=== PATIENT | female | born 1995 | race Caucasian/White ===

== ENCOUNTER 2017-06-29 20:48 | Emergency (ER) | payer MEDICAID ==
[2017-06-29 21:11] VITALS: BP 133/67
--- NOTE | 2017-06-29 21:33 | EDM.PDOC ---
ED HPI GENERAL MEDICAL PROBLEM - General Chief Complaint: Respiratory Problem Stated Complaint: POSSIBLE BRONCITIS Time Seen by Provider: 06/29/17 20:57 Source of Information: Reports: Patient History Limitations: Reports: No Limitations - History of Present Illness INITIAL COMMENTS - FREE TEXT/NARRATIVE: cough; this is a 21 year old female presents to ER with SO and toddler, reports has been sick for 2 days. Has a burning cough, intermittent chills. denies any fever,nausea, vomiting, diarrhea, or . chronic; asthma, uses a albuterol MDI as needed for wheezing/cough Onset: Gradual Onset Date: 06/27/17 Duration: Day(s): (two) Location: Reports: Generalized Quality: Reports: Burning (cough) Severity: Moderate Improves with: Reports: Medication (albuterol inhaler helps) Worsens with: Reports: None Context: Reports: Sick Contact (child is also sick with runny nose and cough) Associated Symptoms: Reports: Cough, Fever/Chills Treatments ANIMAL NURSE: Reports: Breathing Treatments - Related Data Allergies Allergy/AdvReac Type Severity Reaction Status Date / Time No Known Allergies Allergy Verified 06/29/17 21:08 Home Meds: Home Meds Thinks It Is Albuterol 2 puff INH BID 06/29/17 [History] Past Medical History - Past Health History Medical/Surgical History: Denies Medical/Surgical History Respiratory History: Reports: Asthma Psychiatric History: Reports: Suicidal Ideation Social & Family History - Family History Family Medical History: Noncontributory - Tobacco Use Smoking Status *Q: Current Every Day Smoker Years of Tobacco use: 7 Packs/Tins Daily: 1 - Caffeine Use Caffeine Use: Reports: Coffee, Energy Drinks - Recreational Drug Use Recreational Drug Use: No Drug Use in Last 12 Months: Yes Recreational Drug Type: Reports: Methamphetamine Recreational Drug Use Frequency: Monthly - Living Situation & Occupation Living situation: Reports: Single Occupation: Unemployed ED ROS GENERAL - Review of Systems Review Of Systems: See Below Constitutional: Reports: Chills, Fatigue (from coughing all the time) HEENT: Reports: Throat Pain Respiratory: Reports: Pleuritic Chest Pain, Cough Cardiovascular: Reports: No Symptoms Endocrine: Reports: No Symptoms GI/Abdominal: Reports: No Symptoms : Reports: No Symptoms Musculoskeletal: Reports: No Symptoms Skin: Reports: No Symptoms Neurological: Reports: No Symptoms Psychiatric: Reports: No Symptoms Hematologic/Lymphatic: Reports: No Symptoms Immunologic: Reports: No Symptoms ED EXAM, GENERAL - Physical Exam Exam: See Below Exam Limited By: No Limitations General Appearance: Alert, WD/WN, No Apparent Distress Ears: Normal External Exam, Normal Canal, Hearing Grossly Normal, Normal TMs Ear Exam: Bilateral Ear: Tenderness, TM Dull, TM Bulging Nose: Normal Inspection, Normal Mucosa, No Blood Throat/Mouth: Normal Lips, Normal Teeth, Normal Gums, Normal Voice, No Airway Compromise, Inflammation (tonsils are red and edematous. no exudate is note, uvula midline without deviation) Neck: Normal Inspection, Supple, Non-Tender, Full Range of Motion Respiratory/Chest: No Respiratory Distress, Lungs Clear, No Accessory Muscle Use , Chest Non-Tender, Other (rough sounding cough. lungs otherwise are clear. no wheezing, rhonchi or crackles.) Cardiovascular: Regular Rate, Rhythm, No Murmur GI/Abdominal: Normal Bowel Sounds, Soft, Non-Tender, No Mass (Female) Exam: Deferred Rectal (Female) Exam: Deferred Back Exam: Normal Inspection Extremities: Normal Inspection, Normal Range of Motion Neurological: Alert, Oriented, Normal Cognition, Normal Gait, No Motor/Sensory Deficits Psychiatric: Normal Affect, Normal Mood Skin Exam: Warm, Dry, Intact, Normal Color, No Rash Lymphatic: No Adenopathy Course - Vital Signs Last Recorded V/S: Last Vital Signs Temp 36.6 C 06/29/17 21:05 Pulse 96 06/29/17 21:05 Resp 16 06/29/17 21:05 BP 133/67 06/29/17 21:05 Pulse Ox 98 06/29/17 21:05 - Orders/Labs/Meds Orders: Active Orders 24 hr Category Date Time Status CULTURE STREP A CONFIRMATION [RM] Stat Lab 06/29/17 21:27 Results STREP SCRN A RAPID W CULT CONF [RM] Stat Lab 06/29/17 21:27 Results Labs: rapid strep pending. test is negative, will await culture Departure - Departure Time of Disposition: 22:00 Disposition: Home, Self-Care 01 Condition: Good Clinical Impression: Viral syndrome - Discharge Information Referrals: PCP,None [Primary Care Provider] - Forms: ED Department Discharge Care Plan Goals: Viral Syndrome -rapid strep negative, Throat culture pending -medications order; Prednisone 10mg as directed, Robitussin AC 10ml every 4 to 6 hours as needed for painful cough #120ml Advise -rest -push fluids -take medications as directed -follow up with Primary Care for recheck Return to ER or Urgent Care if not improved or symptoms worsen. - Problem List & Annotations (1) Viral syndrome SNOMED Code(s): 43995218 Code(s): B34.9 - VIRAL INFECTION, UNSPECIFIED Status: Acute Priority: Medium Current Visit: Yes - Problem List Review Problem List Initiated/Reviewed/Updated: Yes - My Orders Last 24 Hours: My Active Orders 06/29/17 21:27 CULTURE STREP A CONFIRMATION [] Stat STREP SCRN A RAPID W CULT CONF [] Stat - Assessment/Plan Last 24 Hours: My Active Orders 06/29/17 21:27 CULTURE STREP A CONFIRMATION [] Stat STREP SCRN A RAPID W CULT CONF [] Stat Plan: Viral Syndrome -rapid strep negative, Throat culture pending -medications order; Prednisone 10mg as directed, Robitussin AC 10ml every 4 to 6 hours as needed for painful cough #120ml Advise -rest -push fluids -take medications as directed -follow up with Primary Care for recheck Return to ER or Urgent Care if not improved or symptoms worsen.
== END 2017-06-29 22:05 | disposition home or self-care (01) ==
LOC: JP.ED 20:48
DX: B34.9 Viral infection, unspecified (principal); J45.909 Unspecified asthma, uncomplicated; F17.210 Nicotine dependence, cigarettes, uncomplicated
CPT/HCPCS: 87081; 87430; 99285

== ENCOUNTER 2017-07-01 21:14 | Emergency (ER) | payer MEDICAID ==
[2017-07-01 21:53] VITALS: BP 140/84
--- NOTE | 2017-07-01 22:19 | EDM.PDOC ---
ED HPI GENERAL MEDICAL PROBLEM - General Chief Complaint: General Stated Complaint: COLD Time Seen by Provider: 07/01/17 21:50 Source of Information: Reports: Patient, Family History Limitations: Reports: No Limitations - History of Present Illness INITIAL COMMENTS - FREE TEXT/NARRATIVE: 21-year-old female with worsening cough over the past 2 days despite conservative treatment. Low-grade fevers and a sore throat from coughing. Her boyfriend got started on Zithromax this morning for the same symptoms. She's also used up her Robitussin-AC. She does have a very persistent deep sounding cough but no shortness of breath. Severity: Moderate Associated Symptoms: Reports: Cough, Fever/Chills, Malaise, Weakness - Related Data Allergies Allergy/AdvReac Type Severity Reaction Status Date / Time No Known Allergies Allergy Verified 06/29/17 21:08 Home Meds: Home Meds Thinks It Is Albuterol 2 puff INH BID 06/29/17 [History] Codeine Phosphate/Guaifenesin [Guaifen-Codeine 100-10 mg/5 ml] 10 ml PO Q4H PRN 07/01/17 [History] Prednisone [IJD: Prednisone] 10 mg PO DAILY 07/01/17 [History] Past Medical History - Past Health History Medical/Surgical History: Denies Medical/Surgical History Respiratory History: Reports: Asthma Psychiatric History: Reports: Suicidal Ideation Social & Family History - Family History Family Medical History: Noncontributory - Tobacco Use Smoking Status *Q: Current Every Day Smoker Years of Tobacco use: 7 Packs/Tins Daily: 1 - Caffeine Use Caffeine Use: Reports: None - Recreational Drug Use Recreational Drug Use: No Drug Use in Last 12 Months: Yes Recreational Drug Type: Reports: Methamphetamine Recreational Drug Use Frequency: Monthly - Living Situation & Occupation Living situation: Reports: Single Occupation: Unemployed ED ROS GENERAL - Review of Systems Review Of Systems: See Below Constitutional: Reports: Fever, Chills, Malaise HEENT: Reports: Throat Pain Respiratory: Reports: Cough. Denies: Shortness of Breath, Sputum Cardiovascular: Reports: Chest Pain (From the coughing) GI/Abdominal: Reports: Nausea, Vomiting (From coughing) Skin: Reports: No Symptoms Neurological: Denies: Headache ED EXAM, GENERAL - Physical Exam Exam: See Below Exam Limited By: No Limitations General Appearance: Alert, No Apparent Distress Throat/Mouth: Normal Inspection Respiratory/Chest: No Respiratory Distress, Wheezing (A few scattered expiratory wheezes are heard) Neurological: Alert, Oriented Skin Exam: Warm, Dry, No Rash Course - Vital Signs Last Recorded V/S: Last Vital Signs Temp 97.5 F 07/01/17 21:51 Pulse 90 07/01/17 21:51 Resp 13 07/01/17 21:51 BP 140/84 07/01/17 21:51 Pulse Ox 96 07/01/17 21:51 - Re-Assessments/Exams Free Text/Narrative Re-Assessment/Exam: 07/01/17 22:18 Patient will be started on Zithromax to cover atypicals, encouraged to continue her prednisone and given a refill on the Robitussin-AC. She can recheck again in 2-3 days if not improving satisfactorily. Departure - Departure Time of Disposition: 22:25 Disposition: Home, Self-Care 01 Condition: Good Clinical Impression: Bronchitis - Discharge Information Instructions: Acute Bronchitis, [id number] Referrals: PCP,None [Primary Care Provider] - Forms: ED Department Discharge Care Plan Goals: Continue current medications and take Zithromax as prescribed. Increase activity as tolerated and return if worsening or concerns.
== END 2017-07-01 22:25 | disposition home or self-care (01) ==
LOC: JP.ED 21:14
DX: J40 Bronchitis, not specified as acute or chronic (principal); F17.210 Nicotine dependence, cigarettes, uncomplicated; Z79.899 Other long term (current) drug therapy
CPT/HCPCS: 99283

== ENCOUNTER 2017-07-09 22:30 | Emergency (ER) | payer MEDICAID ==
[2017-07-09 22:53] VITALS: BP 140/80
[2017-07-09] MEDS ORDERED: Alum Hydrox/Mag Hydrox/Simeth 15 ML, Lidocaine 2% 15 ML PO ONE ×2 (23:07)
--- NOTE | 2017-07-09 23:51 | EDM.PDOC ---
ED HPI GENERAL MEDICAL PROBLEM - General Chief Complaint: Chest Pain Stated Complaint: CHEST PAIN Time Seen by Provider: 07/09/17 22:49 Source of Information: Reports: Patient, Family (Partner SO) History Limitations: Reports: No Limitations - History of Present Illness INITIAL COMMENTS - FREE TEXT/NARRATIVE: Chest pain 1 hour: This is a 21-year-old female presents emergency room states having chest pain for the past 1 hour,it is a constant pressure type pain burning. Report eating a whole pizza 4 hours ago. She is currently finished her Zithromax and use of inhaler, prednisone and Robitussin-AC for bronchitis. Still with cough. Also requesting test as she has concerns of . Last menstrual cycle a 06/07/17 , 10 para 3 last 2 years ago, she is not taking control at this time. Onset: Sudden Duration: Hour(s):, Constant Location: Reports: Chest Quality: Reports: Ache, Burning, Sharp Improves with: Reports: None Worsens with: Reports: None Context: Reports: Other ( large pizza 4 hours ago) Associated Symptoms: Reports: Chest Pain, Cough chest/ chest wall pain Pain Score (Numeric/FACES): 7 - Related Data Allergies Allergy/AdvReac Type Severity Reaction Status Date / Time No Known Allergies Allergy Verified 07/09/17 22:55 Home Meds: Home Meds Thinks It Is Albuterol 2 puff INH BID 06/29/17 [History] Codeine Phosphate/Guaifenesin [Guaifen-Codeine 100-10 mg/5 ml] 10 ml PO Q4H PRN 07/01/17 [History] Prednisone [IJD: Prednisone] 10 mg PO DAILY 07/01/17 [History] Past Medical History - Past Health History Medical/Surgical History: Denies Medical/Surgical History Respiratory History: Reports: Asthma Psychiatric History: Reports: Suicidal Ideation Social & Family History - Family History Family Medical History: Noncontributory - Tobacco Use Smoking Status *Q: Current Every Day Smoker Years of Tobacco use: 7 Packs/Tins Daily: 1 - Caffeine Use Caffeine Use: Reports: None - Recreational Drug Use Recreational Drug Use: No Drug Use in Last 12 Months: Yes Recreational Drug Type: Reports: Methamphetamine Recreational Drug Use Frequency: Monthly - Living Situation & Occupation Living situation: Reports: Single Occupation: Unemployed ED ROS GENERAL - Review of Systems Review Of Systems: See Below Constitutional: Reports: Malaise HEENT: Reports: No Symptoms Respiratory: Reports: Pleuritic Chest Pain, Cough Cardiovascular: Reports: No Symptoms Endocrine: Reports: No Symptoms GI/Abdominal: Reports: Abdominal Pain, Nausea (Heartburn) : Reports: No Symptoms, Other (Last menses 06/07/17) Musculoskeletal: Reports: No Symptoms Skin: Reports: No Symptoms Neurological: Reports: No Symptoms Psychiatric: Reports: No Symptoms Hematologic/Lymphatic: Reports: No Symptoms Immunologic: Reports: No Symptoms ED EXAM, GENERAL - Physical Exam Exam: See Below Exam Limited By: Other (Ms. Hollis is noted to be playing on her cell phone during the entire ER visit.) General Appearance: Alert, WD/WN, No Apparent Distress Eye Exam: Bilateral Eye: EOMI, Normal Inspection, PERRL Ears: Normal External Exam, Normal Canal, Hearing Grossly Normal, Normal TMs Ear Exam: Bilateral Ear: Auricle Normal, Canal Normal, TM normal Nose: Normal Inspection, Normal Mucosa, No Blood Throat/Mouth: Normal Inspection, Normal Lips, Normal Teeth, Normal Gums, Normal Oropharynx, Normal Voice, No Airway Compromise Head: Atraumatic, Normocephalic Neck: Normal Inspection, Supple, Non-Tender, Full Range of Motion Respiratory/Chest: No Respiratory Distress, No Accessory Muscle Use, Crackles, Wheezing (With cough), Other (Cough present, nonproductive) Cardiovascular: Regular Rate, Rhythm, No Edema, No Murmur Peripheral Pulses: 2+: Radial (L), Radial (R) GI/Abdominal: Normal Bowel Sounds, Soft, Non-Tender, No Mass, Pelvis Stable (Female) Exam: Deferred Rectal (Female) Exam: Deferred Back Exam: Normal Inspection, Full Range of Motion, NT Extremities: Normal Inspection, Normal Range of Motion, Non-Tender, Normal Capillary Refill, No Pedal Edema Neurological: Alert Psychiatric: Normal Affect Skin Exam: Warm, Dry, Intact, Normal Color, No Rash Lymphatic: No Adenopathy Course - Vital Signs Last Recorded V/S: Last Vital Signs Temp 37.1 C 07/09/17 22:54 Pulse 110 H 07/09/17 22:54 Resp 16 07/09/17 22:54 BP 140/80 07/09/17 22:54 Pulse Ox 99 07/09/17 22:54 - Orders/Labs/Meds Labs: Laboratory Tests 07/09/17 07/09/17 07/09/17 Range/Units 22:59 22:59 22:59 WBC 5.7 (4.5-11.0) K/uL RBC 4.59 (3.30-5.50) M/uL Hgb 11.5 L (12.0-15.0) g/dL Hct 35.1 L (36.0-48.0) % MCV 77 L (80-98) fL MCH 25 L (27-31) pg MCHC 33 (32-36) % Plt Count 244 (150-400) K/uL Neut % (Auto) 60 (36-66) % Lymph % (Auto) 23 L (24-44) % [place] % (Auto) 14 H (2-6) % Eos % (Auto) 2 (2-4) % Baso % (Auto) 1 (0-1) % Sodium 141 (140-148) mmol/L Potassium 3.6 (3.6-5.2) mmol/L Chloride 107 (100-108) mmol/L Carbon Dioxide 25 (21-32) mmol/L Anion Gap 9.2 (5.0-14.0) mmol/L BUN 13 (7-18) mg/dL Creatinine 0.7 (0.6-1.0) mg/dL Est Cr Clr Drug Dosing 113.03 mL/min Estimated GFR (MDRD) > 60 (>60) Glucose 97 (74-106) mg/dL Calcium 8.2 L (8.5-10.1) mg/dL Total Bilirubin 0.8 (0.2-1.0) mg/dL AST 16 (15-37) U/L ALT 17 (12-78) U/L Alkaline Phosphatase 68 (46-116) U/L Total Protein 6.5 (6.4-8.2) g/dL Albumin 3.1 L (3.4-5.0) g/dL Globulin 3.4 (2.3-3.5) g/dL Albumin/Globulin Ratio 0.9 L (1.2-2.2) HCG, Quant 0 (0-6) mIU/mL Meds: Medications Discontinued Medications Generic Name Dose Route Start Last Admin Trade Name Freq PRN Reason Stop Dose Admin Al Hydroxide/Mg Hydroxide 15 0 ml 09/26/17 23:07 07/09/17 23:10 ml/ Lidocaine HCl 15 ml PO 07/09/17 23:08 15 ml ONETIME ONE Administration - Re-Assessments/Exams Free Text/Narrative Re-Assessment/Exam: 07/09/17 Labs CBC CMP are normal, no elevation in white count is noted Medication: GI cocktail, patient notes relief of symptoms with GI cocktail Quantitative hCG is negative Departure - Departure Time of Disposition: 00:24 Disposition: Home, Self-Care 01 Clinical Impression: Bronchitis, Heart burn, test negative - Discharge Information Instructions: Heartburn, [id number] Referrals: PCP,None [Primary Care Provider] - Forms: ED Department Discharge Care Plan Goals: Heart Burn -start Prilosec 20 mg daily -follow up with Primary Care for recheck in 4 weeks Bronchitis -oral steroids as directed -continue with Robitussin AC as directed -Tylenol or Motrin for pain or fever test; negative -follow up with Primary Care in 4 weeks, if does not have menses -consider Control if not trying to conceive. Return to Clinic or ER for increased cough, fever, chills, nausea, vomiting, rash or not improved - Problem List & Annotations (1) Bronchitis SNOMED Code(s): 61834165 Code(s): J40 - BRONCHITIS, NOT SPECIFIED ACUTE OR CHRONIC Status: Acute Priority: Medium (2) Heart burn SNOMED Code(s): 53802428 Code(s): R12 - HEARTBURN Status: Acute Priority: Medium (3) test negative Priority: Medium - Problem List Review Problem List Initiated/Reviewed/Updated: Yes - Assessment/Plan Plan: Heart Burn -start Prilosec 20 mg daily -follow up with Primary Care for recheck in 4 weeks Bronchitis -oral steroids as directed -continue with Robitussin AC as directed -Tylenol or Motrin for pain or fever test; negative -follow up with Primary Care in 4 weeks, if does not have menses -consider Control if not trying to conceive. Return to Clinic or ER for increased cough, fever, chills, nausea, vomiting, rash or not improved
== END 2017-07-10 00:07 | disposition home or self-care (01) ==
LOC: JP.ED 22:30
DX: J40 Bronchitis, not specified as acute or chronic (principal); R12 Heartburn; F17.210 Nicotine dependence, cigarettes, uncomplicated; Z79.899 Other long term (current) drug therapy; Z32.02 Encounter for pregnancy test, result negative
CPT/HCPCS: 36415; 80053; 84702; 85025; 99284; A9270; 99283

== ENCOUNTER 2017-07-24 17:16 | Emergency (ER) | payer MEDICAID ==
[2017-07-24 17:51] VITALS: BP 131/72
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
== END 2017-07-24 19:10 | disposition home or self-care (01) ==
LOC: JP.ED 17:16
DX: F43.20 Adjustment disorder, unspecified (principal); J45.909 Unspecified asthma, uncomplicated; F17.210 Nicotine dependence, cigarettes, uncomplicated; Z79.899 Other long term (current) drug therapy
CPT/HCPCS: 99284; 99285

== ENCOUNTER 2017-08-06 19:14 | Emergency (ER) | payer MEDICAID | END 2017-08-06 19:31 | disposition left against medical advice (07) | LOC: JP.ED 19:14 | DX: Z53.21 Procedure and treatment not carried out due to patient leaving prior to being seen by health care provider (principal) ==

== ENCOUNTER 2017-08-27 22:34 | Emergency (ER) | payer MEDICAID ==
[2017-08-27 22:45] VITALS: BP 111/73
[2017-08-27] MEDS ORDERED: Ketorolac 60 MG/2 ML SDV IM ONE (23:02)
[2017-08-27] MEDS ORDERED: Cyclobenzaprine 10 MG Tab PO ONE (23:02)
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
[2017-08-28] MEDS ORDERED: Acetaminophen/oxyCODONE 325-5 MG Tab PO ONE
--- NOTE | 2017-08-28 09:22 | CR ---
No fracture or dislocation.
--- NOTE | 2017-08-28 09:23 | CR ---
5 lumbar type vertebral bodies. No fracture. Disc heights are maintained. Metallic density which appe ars rounded at the L1 level. Correlate for foreign body or postsurgical change.
== END 2017-08-28 00:27 | disposition home or self-care (01) ==
LOC: JP.ED 22:34
DX: S30.0XXA Contusion of lower back and pelvis, initial encounter (principal); S70.12XA Contusion of left thigh, initial encounter; J45.909 Unspecified asthma, uncomplicated; F17.210 Nicotine dependence, cigarettes, uncomplicated; Z91.040 Latex allergy status; W19.XXXA Unspecified fall, initial encounter; Y92.89 Other specified places as the place of occurrence of the external cause
CPT/HCPCS: 72110; 73552; 96372; 99284; A9270; J1885; 99283

== ENCOUNTER 2017-09-07 23:11 | Emergency (ER) | payer MEDICAID ==
[2017-09-07 23:35] VITALS: BP 130/95
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
== END 2017-09-08 00:07 | disposition home or self-care (01) ==
LOC: JP.ED 23:11
DX: Z63.8 Other specified problems related to primary support group (principal); Z91.040 Latex allergy status; F17.210 Nicotine dependence, cigarettes, uncomplicated
CPT/HCPCS: 99284; 99285

== ENCOUNTER 2017-09-30 05:27 | Emergency (ER) | payer MEDICAID ==
[2017-09-30 05:41] VITALS: BP 134/85
--- NOTE | 2017-09-30 06:01 | EDM.PDOC ---
ED HPI GENERAL MEDICAL PROBLEM - General Chief Complaint: Gastrointestinal Problem Stated Complaint: COUGH Time Seen by Provider: 09/30/17 05:49 Source of Information: Reports: Patient, RN Notes Reviewed History Limitations: Reports: No Limitations - History of Present Illness INITIAL COMMENTS - FREE TEXT/NARRATIVE: 21-year-old female presents emergency department day complaint of cough posttussive emesis difficulty breathing, she states been ill for about 10 days has had fevers is increasingly getting more short of breath, was evaluated in the clinic early on felt to have viral syndrome was treated with cough suppressant denies pain Pain Score (Numeric/FACES): 0 - Related Data Allergies Allergy/AdvReac Type Severity Reaction Status Date / Time Latex, Natural Rubber Allergy Swelling Verified 09/30/17 05:51 Home Meds: Home Meds Albuterol Sulfate [Ventolin Hfa] 1 - 2 puff INH ASDIRECTED PRN 08/27/17 [History ] Past Medical History HEENT History: Reports: Impaired Vision Respiratory History: Reports: Asthma Genitourinary History: Reports: Pyelonephritis, UTI, 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: , 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 Neurological History: Reports: Concussion Psychiatric History: Reports: Bipolar, Depression, Suicide Attempt, Suicidal Ideation Social & Family History - Family History Family Medical History: Noncontributory - Tobacco Use Smoking Status *Q: Current Every Day Smoker Years of Tobacco use: 6 Packs/Tins Daily: 0.5 Used Tobacco, but Quit: No Second Hand Smoke Exposure: Yes - Caffeine Use Caffeine Use: Reports: Coffee, Energy Drinks - Recreational Drug Use Recreational Drug Use: No Drug Use in Last 12 Months: Yes Recreational Drug Type: Reports: Methamphetamine Recreational Drug Use Frequency: Monthly - Living Situation & Occupation Living situation: Reports: Single Occupation: Unemployed ED ROS GENERAL - Review of Systems Review Of Systems: See Below Constitutional: Reports: Fever, Chills HEENT: Reports: No Symptoms Respiratory: Reports: Shortness of Breath, Wheezing, Cough. Denies: Sputum Cardiovascular: Reports: No Symptoms GI/Abdominal: Reports: No Symptoms : Reports: No Symptoms Musculoskeletal: Reports: No Symptoms Skin: Reports: No Symptoms ED EXAM, GENERAL - Physical Exam Exam: See Below Free Text/Narrative:: General: Female, not in any distress, alert and oriented x3 HEENT: head is atraumatic normocephalic, eyes pupils equal round reactive to light, sclera clear no conjunctivitis appreciated. Ears tympanic membranes clear and peck landmarks and light reflex are present bilaterally canals are clear. Nose no septal deviation, nares are clear, no blood present. Mouth mucosa is moist and pink no erythema or exudate noted in soft palate, tongue is midline uvula is midline, dentition is intact. Neck: Supple no thyromegaly no tracheal deviation. Nodes: Cervical nodes subclavicular nodes nontender no palpable lymphadenopathy noted. Lungs: Expiratory wheeze mid to lower lung sierra bilaterally CV: Regular rate and rhythm S1 and S2 appreciated no murmurs rubs or gallops noted. Abdomen: Soft, nontender, no palpable masses or organomegaly appreciated, no distention no guarding bowel sounds are present, [scars ]. Neuro: Cranial nerves II through XII grossly intact Skin: Warm and dry, intact Extremities: No lower extremity edema appreciated, Course - Vital Signs Last Recorded V/S: Last Vital Signs Temp 99.3 F 09/30/17 05:43 Pulse 105 H 09/30/17 05:43 Resp 18 09/30/17 05:43 BP 134/85 09/30/17 05:43 Pulse Ox 92 L 09/30/17 05:43 Departure - Departure Time of Disposition: 06:00 Disposition: Home, Self-Care 01 Condition: Good Clinical Impression: Bronchitis, Mild intermittent asthma with acute exacerbation - Discharge Information Referrals: PCP,None [Primary Care Provider] - Additional Instructions: Take full course of antibiotics, take full course of prednisone, use albuterol as needed help suppress the cough and help breathing, Please followup with your primary care provider in 3-5 days if not better, please call return to the emergency department with worsening of symptoms. - Assessment/Plan Plan: Assessment Acuity = acute Site and laterality = asthma exacerbation with bronchitis Etiology = probable bacterial cause Manifestations = cough, wheezing Location of injury = Home Lab values = none Plan Will treat empirically with azithromycin 5 day course, prednisone 20 mg once a day 5 days and an albuterol inhaler follow-up with primary care in 3-5 days for reevaluation, she was in agreement about plan all of her questions were answered This note was dictated using [employer] voice recognition software please call with any questions on syntax or fredis.
== END 2017-09-30 06:07 | disposition home or self-care (01) ==
LOC: JP.ED 05:27
DX: J45.21 Mild intermittent asthma with (acute) exacerbation (principal); J40 Bronchitis, not specified as acute or chronic; F17.210 Nicotine dependence, cigarettes, uncomplicated; F31.9 Bipolar disorder, unspecified; Z91.040 Latex allergy status
CPT/HCPCS: 99283

== ENCOUNTER 2017-11-10 11:01 | Emergency (ER) | payer MEDICAID ==
[2017-11-10] MEDS ORDERED: Albuterol/Ipratropium 3.0-0.5 MG/3 ML Neb Soln NEB ONE (11:33)
--- NOTE | 2017-11-10 11:39 | EDM.PDOC ---
ED HPI GENERAL MEDICAL PROBLEM - General Chief Complaint: Respiratory Problem Stated Complaint: COUGHING; DIFFICULTY BREATHING Time Seen by Provider: 11/10/17 11:25 Source of Information: Reports: Patient, RN History Limitations: Reports: No Limitations - History of Present Illness INITIAL COMMENTS - FREE TEXT/NARRATIVE: 22 yo smoking female with a pHx of mild asthma has recently had SOB, cough, and runny nose. Thinks she has had a recent fever. Says she can't find her inhaler. Has no family doctor. Cough is occasionally productive. Did not have a flu shot this winter. Onset: Gradual Onset Date: 11/07/17 Duration: Day(s): Location: Reports: Face (nose), Chest Quality: Reports: Other (no pain) Severity: Mild Improves with: Reports: Rest Worsens with: Reports: Movement (exertion) Context: Reports: Other (Respiratory infection/smoker/hx of asthma) Associated Symptoms: Reports: Cough, Fever/Chills (?), Shortness of Breath (mild ) Treatments NEGATIVE TURNER: Reports: Other (see below) (smoking abstinence x 3 d) - Related Data Allergies Allergy/AdvReac Type Severity Reaction Status Date / Time Latex, Natural Rubber Allergy Swelling Verified 11/10/17 11:14 Home Meds: Home Meds Albuterol Sulfate [Ventolin Hfa] 1 - 2 puff INH ASDIRECTED PRN 08/27/17 [History ] Past Medical History - Past Health History Medical/Surgical History: Denies Medical/Surgical History HEENT History: Reports: Impaired Vision Respiratory History: Reports: Asthma, Bronchitis, Recurrent Genitourinary History: Reports: Pyelonephritis, UTI, 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: , 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 Neurological History: Reports: Concussion Psychiatric History: Reports: Bipolar, Depression, Psych Hospitalization(s), Suicide Attempt, Suicidal Ideation Social & Family History - Family History Family Medical History: Noncontributory - Tobacco Use Smoking Status *Q: Current Every Day Smoker Years of Tobacco use: 6 Packs/Tins Daily: 0.5 Used Tobacco, but Quit: No Second Hand Smoke Exposure: Yes - Caffeine Use Caffeine Use: Reports: None - Recreational Drug Use Recreational Drug Use: No Drug Use in Last 12 Months: Yes Recreational Drug Type: Reports: Methamphetamine Recreational Drug Use Frequency: Monthly - Living Situation & Occupation Living situation: Reports: Single Occupation: Unemployed ED ROS GENERAL - Review of Systems Review Of Systems: See Below Constitutional: Reports: Fever (? not sure) HEENT: Reports: Rhinitis. Denies: Ear Discharge, Ear Pain, Throat Pain Respiratory: Reports: Shortness of Breath, Cough, Sputum. Denies: Hemoptysis Cardiovascular: Reports: No Symptoms GI/Abdominal: Reports: No Symptoms : Reports: No Symptoms Musculoskeletal: Reports: No Symptoms Skin: Reports: No Symptoms Neurological: Reports: No Symptoms ED EXAM, GENERAL - Physical Exam Exam: See Below Exam Limited By: No Limitations General Appearance: Alert, WD/WN, No Apparent Distress, Obese Eye Exam: Bilateral Eye: Normal Inspection Ears: Normal External Exam, Normal Canal, Hearing Grossly Normal, Normal TMs Ear Exam: Bilateral Ear: Auricle Normal, Canal Normal, TM normal Nose: Nasal Drainage (cloudy, mostly white) Throat/Mouth: Normal Inspection, Normal Lips, Normal Oropharynx, Normal Voice, No Airway Compromise Head: Atraumatic, Normocephalic Neck: Normal Inspection, Supple Respiratory/Chest: No Respiratory Distress, Chest Non-Tender, Crackles ( diffusely) Cardiovascular: Regular Rate, Rhythm Back Exam: Normal Inspection. No: CVA Tenderness (R), CVA Tenderness (L) Extremities: Normal Inspection, Normal Range of Motion, Non-Tender Neurological: Alert, Oriented, CN II-XII Intact, Normal Cognition, No Motor/ Sensory Deficits Psychiatric: Normal Affect, Normal Mood Skin Exam: Warm, Dry, Intact, Normal Color, No Rash, Wound/Incision Course - Vital Signs Text/Narrative:: Modest improvement with neb tx, still has some coarse breath sounds bilat. Last Recorded V/S: Last Vital Signs Temp 37.3 C 11/10/17 11:20 Pulse 118 H 11/10/17 12:08 Resp 20 11/10/17 12:08 BP 137/80 11/10/17 12:08 Pulse Ox 93 L 11/10/17 12:08 - Orders/Labs/Meds Orders: Active Orders 24 hr Category Date Time Status RT Aerosol Therapy [RC] ASDIRECTED Care 11/10/17 11:33 Active Labs: Laboratory Tests 11/10/17 Range/Units 12:20 WBC 7.8 (4.5-11.0) K/uL RBC 5.06 (3.30-5.50) M/uL Hgb 12.9 (12.0-15.0) g/dL Hct 39.5 (36.0-48.0) % MCV 78 L (80-98) fL MCH 26 L (27-31) pg MCHC 33 (32-36) % Plt Count 160 (150-400) K/uL Meds: Medications Discontinued Medications Generic Name Dose Route Start Last Admin Trade Name Freq PRN Reason Stop Dose Admin Albuterol/Ipratropium 3 ml 11/10/17 11:33 11/10/17 11:48 Duoneb 3.0-0.5 Mg/3 Ml NEB 11/10/17 11:34 3 ml ONETIME ONE Administration Departure - Departure Time of Disposition: 12:39 Disposition: Home, Self-Care 01 Condition: Fair Clinical Impression: Viral respiratory illness, Bronchospasm, Tobacco abuse disorder - Discharge Information Referrals: PCP,None [Primary Care Provider] - Forms: ED Department Discharge - My Orders Last 24 Hours: My Active Orders 11/10/17 11:33 RT Aerosol Therapy [RC] ASDIRECTED - Assessment/Plan Last 24 Hours: My Active Orders 11/10/17 11:33 RT Aerosol Therapy [RC] ASDIRECTED
[2017-11-10 12:09] VITALS: BP 137/80
== END 2017-11-10 12:53 | disposition home or self-care (01) ==
LOC: JP.ED 11:01
DX: J98.01 Acute bronchospasm (principal); B34.9 Viral infection, unspecified; F17.210 Nicotine dependence, cigarettes, uncomplicated; Z91.040 Latex allergy status
CPT/HCPCS: 36415; 85027; 87804; 94640; 99284; J7620

== ENCOUNTER 2017-11-11 22:07 | Observation (INO) | payer MEDICAID ==
[2017-11-11] MEDS ORDERED: Albuterol/Ipratropium 3.0-0.5 MG/3 ML Neb Soln NEB ONE (22:22)
[2017-11-11] MEDS ORDERED: Sodium Chloride 0.9% 10 ML Syringe FLUSH PRN (22:22)
--- NOTE | 2017-11-11 22:47 | EDM.PDOC ---
ED HPI GENERAL MEDICAL PROBLEM - General Chief Complaint: Respiratory Problem Stated Complaint: ILLNESS Time Seen by Provider: 11/11/17 22:15 Source of Information: Reports: Patient, EMS History Limitations: Reports: No Limitations - History of Present Illness INITIAL COMMENTS - FREE TEXT/NARRATIVE: 22-year-old female seen yesterday in the emergency room with a cough and cold, influenza were negative. She became worse today, and despite taking a nebulizer of her son's, she became more short of breath and called EMS. When EMS arrived she had oxygen saturations only in the mid to upper 80s so oxygen supplementation was given. On arrival to the emergency room she was not in respiratory distress but even with 3-4 L of nasal cannula oxygen she was still saturating from 85-90%. Frequent cough. She is also running a fever. Onset: Gradual (Over the past several days) Severity: Moderate Improves with: Reports: Other (Oxygen seems to help) Associated Symptoms: Reports: Cough, Fever/Chills, Shortness of Breath - Related Data Allergies Allergy/AdvReac Type Severity Reaction Status Date / Time Latex, Natural Rubber Allergy Swelling Verified 11/11/17 22:12 Home Meds: Home Meds Albuterol Sulfate [Ventolin Hfa] 1 - 2 puff INH ASDIRECTED PRN 08/27/17 [History ] Albuterol Sulfate [Proair Hfa] 2 puff IH Q4H PRN #1 hfa.aer.ad 11/10/17 [Rx] Codeine/guaiFENesin [Robitussin AC] 5 - 19 ml PO Q4H PRN #1 liquid 11/10/17 [Rx] Past Medical History - Past Health History Medical/Surgical History: Denies Medical/Surgical History HEENT History: Reports: Impaired Vision Respiratory History: Reports: Asthma, Bronchitis, Recurrent Genitourinary History: Reports: Pyelonephritis, UTI, Recurrent 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: , 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 Neurological History: Reports: Concussion Psychiatric History: Reports: Bipolar, Depression, Psych Hospitalization(s), Suicide Attempt, Suicidal Ideation Social & Family History - Family History Family Medical History: Noncontributory - Tobacco Use Smoking Status *Q: Current Every Day Smoker Years of Tobacco use: 6 Packs/Tins Daily: 0.5 Used Tobacco, but Quit: No Second Hand Smoke Exposure: Yes - Caffeine Use Caffeine Use: Reports: None - Recreational Drug Use Recreational Drug Use: No Drug Use in Last 12 Months: Yes Recreational Drug Type: Reports: Methamphetamine Recreational Drug Use Frequency: Monthly - Living Situation & Occupation Living situation: Reports: Single Occupation: Unemployed ED ROS GENERAL - Review of Systems Review Of Systems: See Below Constitutional: Reports: Fever, Chills, Malaise, Weakness HEENT: Denies: Throat Pain Respiratory: Reports: Shortness of Breath, Cough, Sputum Cardiovascular: Denies: Chest Pain GI/Abdominal: Denies: Abdominal Pain, Nausea, Vomiting Musculoskeletal: Reports: No Symptoms Skin: Reports: No Symptoms ED EXAM, GENERAL - Physical Exam Exam: See Below Exam Limited By: No Limitations General Appearance: Alert, Mild Distress Throat/Mouth: Normal Inspection Respiratory/Chest: Respiratory Distress (Mild increased respiratory effort, not tachypneic), Rales (Bilateral basilar rales, worse on the left) Cardiovascular: Regular Rate, Rhythm, Tachycardia Extremities: Normal Inspection Neurological: Alert, Oriented Psychiatric: Depressed Mood, Flat Affect Skin Exam: Warm, Dry Course - Vital Signs Last Recorded V/S: Last Vital Signs Temp 100.0 F 11/12/17 00:31 Pulse 118 H 11/12/17 00:12 Resp 20 11/12/17 00:12 BP 126/69 11/12/17 00:12 Pulse Ox 92 L 11/12/17 00:12 - Orders/Labs/Meds Orders: Active Orders 24 hr Category Date Time Status Patient Status [ADT] Routine ADT 11/11/17 23:21 Active Oxygen Therapy [RC] PRN Care 11/11/17 23:21 Active RT Aerosol Therapy [RC] ASDIRECTED Care 11/11/17 22:22 Active RT Aerosol Therapy [RC] ASDIRECTED Care 11/11/17 23:24 Active Up With Assistance [RC] ASDIRECTED Care 11/11/17 23:21 Active Vital Signs [RC] Q4H Care 11/11/17 23:21 Active Regular Diet [DIET] Diet 11/11/17 Breakfast Active Chest 2V [CR] Routine Exams 11/11/17 22:22 Taken BASIC METABOLIC PANEL,BMP [CHEM] AM Lab 11/12/17 05:11 Ordered CBC W/O DIFF,HEMOGRAM [HEME] AM Lab 11/12/17 05:11 Ordered Acetaminophen [Tylenol] Med 11/11/17 23:21 Active 650 mg PO Q4H PRN Albuterol/Ipratropium [DuoNeb 3.0-0.5 MG/3 ML] Med 11/11/17 23:21 Active 3 ml NEB QID PRN Ondansetron [Zofran] Med 11/11/17 23:21 Active 4 mg IV Q4H PRN Sodium Chloride 0.9% [Normal Saline] 1,000 ml Med 11/11/17 23:30 Active IV ASDIRECTED Sodium Chloride 0.9% [Saline Flush] Med 11/11/17 22:22 Active 10 ml FLUSH ASDIRECTED PRN methylPREDNISolone Sod Succ [Solu-MEDROL] Med 11/12/17 06:00 Active 125 mg IVPUSH Q8HR Saline Lock Insert [OM.PC] Routine Oth 11/11/17 22:22 Ordered Resuscitation Status Routine Resus Stat 11/11/17 23:21 Ordered Medication Orders Acetaminophen (Tylenol) 650 mg PO Q4H PRN PRN Reason: Pain (Mild 1-3)/fever Last Admin: 11/12/17 00:31 Dose: 650 mg Albuterol/Ipratropium (Duoneb 3.0-0.5 Mg/3 Ml) 3 ml NEB QID PRN PRN Reason: Shortness Of Breath/wheezing Sodium Chloride (Normal Saline) 1,000 mls @ 125 mls/hr IV ASDIRECTED MISSAEL Last Admin: 11/12/17 00:32 Dose: 125 mls/hr Methylprednisolone Sodium Succinate (Solu-Medrol) 125 mg IVPUSH Q8HR MISSAEL Ondansetron HCl (Zofran) 4 mg IV Q4H PRN PRN Reason: Nausea/Vomiting Sodium Chloride (Saline Flush) 10 ml FLUSH ASDIRECTED PRN PRN Reason: Keep Vein Open Last Admin: 11/11/17 22:32 Dose: 10 ml Meds: Medications Generic Name Dose Route Start Last Admin Trade Name Freq PRN Reason Stop Dose Admin Acetaminophen 650 mg 11/11/17 23:21 11/12/17 00:31 Tylenol PO 650 mg Q4H PRN Administration Pain (Mild 1-3)/fever Albuterol/Ipratropium 3 ml 11/11/17 23:21 Duoneb 3.0-0.5 Mg/3 Ml NEB QID PRN Shortness Of Breath/wheezing Sodium Chloride 1,000 mls @ 125 mls/hr 11/11/17 23:30 11/12/17 00:32 Normal Saline IV 125 mls/hr ASDIRECTED MISSAEL Administration Methylprednisolone Sodium Succinate 125 mg 11/12/17 06:00 Solu-Medrol IVPUSH Q8HR MISSAEL Ondansetron HCl 4 mg 11/11/17 23:21 Zofran IV Q4H PRN Nausea/Vomiting Sodium Chloride 10 ml 11/11/17 22:22 11/11/17 22:32 Saline Flush FLUSH 10 ml ASDIRECTED PRN Administration Keep Vein Open Discontinued Medications Generic Name Dose Route Start Last Admin Trade Name Freq PRN Reason Stop Dose Admin Albuterol/Ipratropium 3 ml 11/11/17 22:22 11/11/17 22:27 Duoneb 3.0-0.5 Mg/3 Ml NEB 11/11/17 22:23 3 ml ONETIME ONE Administration Azithromycin 1,000 mg 11/11/17 23:02 11/11/17 23:19 Zithromax PO 11/11/17 23:03 1,000 mg ONETIME ONE Administration Ceftriaxone Sodium 1 gm/ 50 mls @ 100 mls/hr 11/11/17 23:02 11/11/17 23:19 Sodium Chloride IV 11/11/17 23:31 100 mls/hr ONETIME ONE Administration Methylprednisolone Sodium Succinate 125 mg 11/11/17 23:02 11/11/17 23:19 Solu-Medrol IVPUSH 11/11/17 23:03 125 mg ONETIME ONE Administration - Re-Assessments/Exams Free Text/Narrative Re-Assessment/Exam: 11/11/17 22:57 Despite the nebulizer her oxygen saturations are still only 88-90% on 4 L of nasal cannula oxygen. A two-view chest x-ray showed a left lower lobe infiltrate. Patient was given IV Rocephin, oral Zithromax and IV Solu-Medrol. Dr. Wallace was asked to see the patient for admission. 11/11/17 23:01 Influenza antigens and lab work were not repeated as they were just done last night. Departure - Departure Time of Disposition: 00:31 Disposition: Admitted As Inpatient 67 Condition: Fair Clinical Impression: Pneumonia Qualifiers: Pneumonia type: due to unspecified organism Laterality: left Lung location: lower lobe of lung Qualified Code(s): J18.1 - Lobar pneumonia, unspecified organism - Discharge Information - My Orders Last 24 Hours: My Active Orders 11/11/17 22:22 RT Aerosol Therapy [RC] ASDIRECTED Chest 2V [CR] Routine Sodium Chloride 0.9% [Saline Flush] 10 ml FLUSH ASDIRECTED PRN Saline Lock Insert [OM.PC] Routine - Assessment/Plan Last 24 Hours: My Active Orders 11/11/17 22:22 RT Aerosol Therapy [RC] ASDIRECTED Chest 2V [CR] Routine Sodium Chloride 0.9% [Saline Flush] 10 ml FLUSH ASDIRECTED PRN Saline Lock Insert [OM.PC] Routine
[2017-11-11] MEDS ORDERED: Azithromycin 250 MG Tab PO ONE (23:02)
[2017-11-11] MEDS ORDERED: cefTRIAXone 1 GM in Sodium Chloride 0.9% 50 ML IV ONE (23:02)
[2017-11-11] MEDS ORDERED: methylPREDNISolone Sodium Succinate 125 MG/2 ML SDV IVPUSH ONE (23:02)
[2017-11-11] MEDS ORDERED: Acetaminophen 325 MG Tab PO PRN (23:21)
[2017-11-11] MEDS ORDERED: Ondansetron 4 MG/2 ML SDV IV PRN (23:21)
[2017-11-12] MEDS: Sodium Chloride 0.9% 1,000 ML IV SCH ×2 (00:32→07:44)
[2017-11-12] MEDS: Albuterol/Ipratropium 3.0-0.5 MG/3 ML Neb Soln NEB PRN ×2 (05:40→07:18)
[2017-11-12] MEDS ORDERED: methylPREDNISolone Sodium Succinate 125 MG/2 ML SDV IVPUSH SCH (06:00)
[2017-11-12] MEDS ORDERED: Benzonatate 100 MG Cap PO PRN (06:17)
--- NOTE | 2017-11-12 08:53 | PCM.DCSUM1 ---
Discharge Summary - Hospital Course Brief History: 22-year-old female with history of tobacco dependence and mild intermittent asthma who presented with persistent and progressive cough shortness of breath. Workup in the emergency room suggested left-sided pneumonia with hypoxic respiratory failure and she was admitted for further management. - Discharge Data Discharge Date: 11/12/17 Discharge Disposition: DC/Tfer to Acute Hospital 02 Condition: Serious - Discharge Diagnosis/Problem(s) (1) Bilateral pneumonia SNOMED Code(s): 770115566 ICD Code: J18.9 - PNEUMONIA, UNSPECIFIED ORGANISM Status: Acute Current Visit: Yes Qualifiers: Pneumonia type: due to unspecified organism Lung location: lower lobe of lung Qualified Code(s): J18.9 - Pneumonia, unspecified organism (2) Acute asthma exacerbation SNOMED Code(s): 828151357 ICD Code: J45.901 - UNSPECIFIED ASTHMA WITH (ACUTE) EXACERBATION Status: Acute Current Visit: Yes Qualifiers: Asthma severity: mild Asthma persistence: intermittent Qualified Code(s) : J45.21 - Mild intermittent asthma with (acute) exacerbation (3) Acute respiratory failure with hypoxia SNOMED Code(s): 52454249 ICD Code: J96.01 - ACUTE RESPIRATORY FAILURE WITH HYPOXIA Status: Acute Current Visit: Yes (4) Tobacco abuse disorder SNOMED Code(s): 865116957 ICD Code: Z72.0 - TOBACCO USE Status: Chronic Current Visit: No - Patient Summary/Data Hospital Course: Constantin presented to the emergency room with one week of progressive cough shortness of breath. It is noted that she was seen in the emergency room the night before admission and had negative influenza testing and a normal white count at that time. Workup in the emergency room revealed hypoxic respiratory failure and initially she was requiring 4-5 L of oxygen to keep her saturations are 90%. Laboratory studies revealed a normal white count and a borderline low potassium. Chest x-ray was suggestive of bilateral pneumonia. She was given IV steroids and started on ceftriaxone and azithromycin and admitted to the hospital for further management. During the first part of the night she was relatively stable and required only 2 L of supplemental oxygen. Respiratory rate was around 20 and blood pressure and heart rate were both stable. Between 6 and 7 in the morning after admission she had sudden increase in her supplemental oxygen requirement. She was increased to 12 L nonrebreather mask. Nebulizer treatment did not provide much benefit. Respiratory rate had increased to the low 30s. Blood pressure and heart rate did both remain stable. I was concerned by the sudden increase in the oxygen requirement and change in her status. I contacted [facility] and spoke with Dr. Sandoval of critical care. After hearing the story he was concerned about acute influenza infection. The patient was given a dose of Tamiflu and IV fluids were stopped. Transfer to a higher level of care was recommended given her declining status to the setting of asthma and tobacco dependence. I believe the benefits of transfer far outweigh the risks at this point. She should be safe for transfer to [place] with the non-rebreather and I don't believe intubation is imminent though if her condition declines any further it certainly could be necessary. - Patient Instructions Diet: NPO Activity: Bedrest Other/Special Instructions: Transfer to [facility] -. -Bilateral pneumonia , severe hypoxic resp failure, tobacco dependence. -Dr Sandoval accepting, direct admit to ICU - Discharge Plan Home Medications: Home Meds Albuterol Sulfate [Ventolin Hfa] 1 - 2 puff INH ASDIRECTED PRN 08/27/17 [History ] Albuterol Sulfate [Proair Hfa] 2 puff IH Q4H PRN #1 hfa.aer.ad 11/10/17 [Rx] Codeine/guaiFENesin [Robitussin AC] 5 - 19 ml PO Q4H PRN #1 liquid 11/10/17 [Rx] Patient Handouts: Community-Acquired Pneumonia, Adult Referrals: PCP,None [Primary Care Provider] - - Discharge Summary/Plan Comment DC Time >30 min.: Yes (60 - transfer to acute Hospital) - Patient Data Vitals - Most Recent: Last Vital Signs Temp 36 C 11/12/17 04:00 Pulse 96 11/12/17 04:00 Resp 20 11/12/17 04:00 BP 111/64 11/12/17 04:00 Pulse Ox 89 L 11/12/17 04:00 Weight - Most Recent: 81.828 kg I&O - Last 24 hours: Intake & Output 11/11/17 11/12/17 11/12/17 22:59 06:59 14:59 Intake Total 757 Balance 757 Lab Results - Last 24 hrs: Laboratory Results - last 24 hr 11/12/17 11/12/17 Range/Units 05:11 05:11 WBC 6.4 (4.5-11.0) K/uL RBC 4.78 (3.30-5.50) M/uL Hgb 12.5 (12.0-15.0) g/dL Hct 37.1 (36.0-48.0) % MCV 78 L (80-98) fL MCH 26 L (27-31) pg MCHC 34 (32-36) % Plt Count 173 (150-400) K/uL Sodium 136 L (140-148) mmol/L Potassium 3.5 L (3.6-5.2) mmol/L Chloride 100 (100-108) mmol/L Carbon Dioxide 24 (21-32) mmol/L Anion Gap 15.5 H (5.0-14.0) mmol/L BUN 5 L D (7-18) mg/dL Creatinine 0.6 (0.6-1.0) mg/dL Est Cr Clr Drug Dosing 130.77 mL/min Estimated GFR (MDRD) > 60 (>60) Glucose 162 H (74-106) mg/dL Calcium 8.4 L (8.5-10.1) mg/dL Med Orders - Current: Current Medications Acetaminophen (Tylenol) 650 mg PO Q4H PRN PRN Reason: Pain (Mild 1-3)/fever Last Admin: 11/12/17 00:31 Dose: 650 mg Albuterol (Proventil Neb Soln) 2.5 mg NEB ONETIME ONE Stop: 11/12/17 09:01 Albuterol/Ipratropium (Duoneb 3.0-0.5 Mg/3 Ml) 3 ml NEB QID PRN PRN Reason: Shortness Of Breath/wheezing Last Admin: 11/12/17 07:18 Dose: 3 ml Benzonatate (Tessalon Perles) 100 mg PO TID PRN PRN Reason: Cough Last Admin: 11/12/17 06:29 Dose: 100 mg Methylprednisolone Sodium Succinate (Solu-Medrol) 125 mg IVPUSH Q8HR MISSAEL Last Admin: 11/12/17 05:20 Dose: 125 mg Ondansetron HCl (Zofran) 4 mg IV Q4H PRN PRN Reason: Nausea/Vomiting Oseltamivir Phosphate (Tamiflu) 75 mg PO ONETIME ONE Stop: 11/12/17 09:01 Sodium Chloride (Saline Flush) 10 ml FLUSH ASDIRECTED PRN PRN Reason: Keep Vein Open Last Admin: 11/11/17 22:32 Dose: 10 ml Discontinued Medications Albuterol/Ipratropium (Duoneb 3.0-0.5 Mg/3 Ml) 3 ml NEB ONETIME ONE Stop: 11/11/17 22:23 Last Admin: 11/11/17 22:27 Dose: 3 ml Azithromycin (Zithromax) 1,000 mg PO ONETIME ONE Stop: 11/11/17 23:03 Last Admin: 11/11/17 23:19 Dose: 1,000 mg Ceftriaxone Sodium 1 gm/ (Sodium Chloride) 50 mls @ 100 mls/hr IV ONETIME ONE Stop: 11/11/17 23:31 Last Admin: 11/11/17 23:19 Dose: 100 mls/hr Sodium Chloride (Normal Saline) 1,000 mls @ 125 mls/hr IV ASDIRECTED MISSAEL Last Admin: 11/12/17 07:44 Dose: 125 mls/hr Methylprednisolone Sodium Succinate (Solu-Medrol) 125 mg IVPUSH ONETIME ONE Stop: 11/11/17 23:03 Last Admin: 11/11/17 23:19 Dose: 125 mg - Exam Quality Assessment: Reports: Supplemental Oxygen General: Reports: Alert, Oriented, Cooperative, Moderate Distress Neck: Reports: Supple Lungs: Reports: Decreased Breath Sounds (Both bases), Crackles (Both lower and midlung sierra), Wheezing (Mild expiratory). Denies: Normal Respiratory Effort (Increased work of breathing) Cardiovascular: Reports: Regular Rhythm, No Murmurs, Tachycardia GI/Abdominal Exam: Soft, No Distention Extremities: No Pedal Edema Psy/Mental Status: Reports: Alert, Anxious *Q Meaningful Use (DIS) - VTE *Q VTE Criteria *Q: - Stroke *Q Stroke Criteria *Q: - AMI *Q AMI Criteria *Q:
[2017-11-12 08:59] VITALS: BP 121/68
[2017-11-12] MEDS ORDERED: Oseltamivir 75 MG Cap PO ONE (09:00)
[2017-11-12] MEDS ORDERED: Albuterol 0.083% 2.5 MG/3 ML Neb Soln NEB ONE (09:00)
--- NOTE | 2017-11-12 09:01 | CR ---
Chest 2V HISTORY: Dyspnea. COMPARISON: None FINDINGS: Infiltrates in the medial right and left lung base. The mid and upper lung zones are clear. No effusions. Cardiac size is normal. No acute congestive change. Impression: Bibasilar infiltrates.
--- NOTE | 2017-11-13 07:58 | HP ---
CHIEF COMPLAINT: Shortness of breath. HISTORY OF PRESENT ILLNESS: A 22-year-old smoker with history of asthma, presented to the ER last night. It was felt to be a viral illness, presenting with shortness of breath and cough. Influenza test was negative along with the rest of her lab work, and was discharged thinking it was a viral illness. She has been using her nebulizer that her brother has, and it does help short-term but did get more short of breath and cough medicine that they did prescribe her with codeine just made it worse. She was brought in by ambulance with hypoxia, with O2 sats on room air in the low 80% range. It took 4 L to get her up to 90%. She does report some stomach pain likely from the coughing. I was asked to admit the patient for further evaluation and treatment. PAST MEDICAL HISTORY: Asthma. Otherwise, she denies any other medical problems. MEDICATIONS: 1. Albuterol inhaler. Lately, she has been using someone else's nebulizer. 2. She has also had codeine cough medicine that made it worse. 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 SOCIAL HISTORY: Smoking a quarter to half pack cigarettes, but has not smoked for about a week. FAMILY HISTORY: There is some asthma in the family. REVIEW OF SYSTEMS: HEENT: She denies headaches, vision changes, or upper respiratory symptoms. CARDIOPULMONARY: No chest pain, but she does have shortness of breath with cough. GASTROINTESTINAL: She does have some nausea with upper abdominal pain, no bowel or bladder trouble. DERMATOLOGIC: No skin problems. NEUROLOGICAL: No neurologic complaints. OBJECTIVE/PHYSICAL EXAMINATION: VITAL SIGNS: Weight is 80 kg. Temperature was 38.4, pulse was 125, blood pressure was 138/76, respirations were 22, and O2 saturation was 87% to 93% on 4 L per nasal cannula. GENERAL: The patient is with tachypnea, looking like she is short of breath, as long as she doesn't get excited her breathing is fairly stable. MOUTH: Pharynx, dry mucous membranes in her mouth. NECK: Supple. No significant adenopathy. LUNGS: She does have rhonchi especially in the left base. HEART: Regular without murmurs, but tachycardic. ABDOMEN: Soft. She did have some mild epigastric pain. No distention. No mass or organomegaly was palpated. EXTREMITIES: No edema. SKIN: Negative. DIAGNOSTIC STUDIES: Chest x-ray shows probable infiltrate in the left lower lobe. Await Radiology interpretation. LABORATORY DATA: None done tonight, but she had a negative influenza yesterday, strep, CBC, and CMP. ASSESSMENT AND PLAN: 1. Left lower lobe pneumonia. The patient already started on IV Rocephin, Zithromax, and IV Solu-Medrol, which we will continue every eight hours. Admit her under observation. Anticipate less than two midnight stays. 2. Smoker, which I would recommend smoking cessation. 3. Underlying asthma. We will transfer care to the Hospitalist Service in the morning. Quirino Wallace MD /[id number]
== END 2017-11-12 09:15 ==
LOC: JP.ED 22:07 → JP.ICU 23:31
PROVIDERS: ADMIT Family Medicine; ATTEND Family Medicine
DX: J18.9 Pneumonia, unspecified organism (principal); J45.21 Mild intermittent asthma with (acute) exacerbation; J96.01 Acute respiratory failure with hypoxia; F17.210 Nicotine dependence, cigarettes, uncomplicated; F31.9 Bipolar disorder, unspecified; Z91.040 Latex allergy status; Z91.09 Other allergy status, other than to drugs and biological substances
CPT/HCPCS: 36415; 71046; 80048; 85027; 87804; 94640; 96361; 96365; 96375; 99217; 99284; 99285; A9270; J0696; J2930; J7040; J7050; J7620; 96376; G0378; J7030